=== PATIENT | female | born 1970 | race African-American/Black ===

== ENCOUNTER 2023-06-29 17:03 | Emergency (ER) | payer BC ==
[~2023-06-29] VITALS: Ht 172.7 cm; Wt 86.2 kg
[2023-06-29 17:06] VITALS: BP_SYST 143; PULSE 93; RESP 18; TEMP 98.3; O2SAT 99
[2023-06-29 18:08] LABS: BASOPHILS % (AUTO) 0.6 % (0.0-2.0); EOSINOPHILS # (AUTO) 0.2 K/uL (0.0-0.4); EOSINOPHILS % (AUTO) 5.6 % (0.0-4.0); HEMATOCRIT 38.1 % (36-48); HEMOGLOBIN 12.4 g/dL (12.0-16.0); LYMPHOCYTES # (AUTO) 1.3 K/uL (1.0-5.5); LYMPHOCYTES % (AUTO) 32.5 % (20.5-51.5); MEAN CORPUSCULAR HEMOGLOBIN 28 pg (27-31); MEAN CORPUSCULAR HGB CONC 33 % (32-36); MEAN CORPUSCULAR VOLUME 85 fL (79.0-98.0); MONOCYTES # (AUTO) 0.6 K/uL (0.0-1.0); MONOCYTES % (AUTO) 14.5 % (1.7-9.3); NEUTROPHILS # (AUTO) 1.9 K/uL (1.8-7.7); NEUTROPHILS % (AUTO) 46.8 % (40.0-70.0); PLATELET COUNT (AUTO) 286 K/uL (130-430); RED BLOOD CELL COUNT(AUTO) 4.47 MIL/uL (4.2-6.2); RED CELL DISTRIBUTION WIDTH 14.6 % (9.0-15.0)
[2023-06-29 18:11] LABS: CREATININE 0.91 mg/dL (0.55-1.30); POTASSIUM 3.5 mmol/L (3.5-5.1)
[2023-06-29 18:15] LABS: ALBUMIN 3.5 g/dL (3.4-4.8); TOTAL BILIRUBIN 0.5 mg/dL (0.0-1.0)
[2023-06-29] MEDS ORDERED: CEFU250T85 PO (18:36)
[2023-06-29 19:46] VITALS: BP_SYST 143; PULSE 93; RESP 18; TEMP 98.3; O2SAT 99
== END 2023-06-29 19:46 | disposition home or self-care (01) ==
LOC: SED 17:03
DX: J18.9 Pneumonia, unspecified organism (principal); R06.02 Shortness of breath; Z79.899 Other long term (current) drug therapy
CPT/HCPCS: 36415; 71046-TC; 80053; 85025; 93005; 99285

== ENCOUNTER 2023-07-23 10:55 | Emergency (ER) | payer BC ==
[~2023-07-23] VITALS: Ht 172.7 cm; Wt 83.9 kg
[~2023-07-23 10:55] MED LIST: CEFU250T85 PO
[2023-07-23 11:11] VITALS: BP_SYST 147; PULSE 89; RESP 18; TEMP 97.7; O2SAT 99
[2023-07-23 11:39] LABS: BASOPHILS % (AUTO) 0.8 % (0.0-2.0); EOSINOPHILS # (AUTO) 0.2 K/uL (0.0-0.4); EOSINOPHILS % (AUTO) 5.7 % (0.0-4.0); HEMATOCRIT 38.3 % (36-48); HEMOGLOBIN 12.2 g/dL (12.0-16.0); LYMPHOCYTES # (AUTO) 1.2 K/uL (1.0-5.5); LYMPHOCYTES % (AUTO) 33.5 % (20.5-51.5); MEAN CORPUSCULAR HEMOGLOBIN 27 pg (27-31); MEAN CORPUSCULAR HGB CONC 32 % (32-36); MEAN CORPUSCULAR VOLUME 85 fL (79.0-98.0); MONOCYTES # (AUTO) 0.6 K/uL (0.0-1.0); MONOCYTES % (AUTO) 15.7 % (1.7-9.3); NEUTROPHILS # (AUTO) 1.6 K/uL (1.8-7.7); NEUTROPHILS % (AUTO) 44.3 % (40.0-70.0); PLATELET COUNT (AUTO) 269 K/uL (130-430); RED BLOOD CELL COUNT(AUTO) 4.48 MIL/uL (4.2-6.2); WHITE BLOOD COUNT (AUTO) 3.6 K/uL (4.8-10.8)
[2023-07-23 11:49] LABS: CALCIUM 9.1 mg/dL (8.4-11.0); CREATININE 0.75 mg/dL (0.55-1.30)
[2023-07-23 11:52] LABS: POTASSIUM 2.9 mmol/L (3.5-5.1)
[2023-07-23] MEDS ORDERED: POTASSIUM CHLORIDE 20 MEQ TAB.PRT.SR PO ONE (12:00)
[2023-07-23] MEDS ORDERED: KCL 40 mEq in 100 mL (PREMIX) 100 ML IV ONE (12:00)
[2023-07-23] MEDS ORDERED: POTA-197 PO (12:59)
== END 2023-07-23 13:30 | disposition home or self-care (01) ==
LOC: SED 10:55
DX: R06.02 Shortness of breath (principal); E87.6 Hypokalemia; Z79.899 Other long term (current) drug therapy
CPT/HCPCS: 36415; 71045; 80048; 83880; 84484; 85025; 85379; 93005; 99285

== ENCOUNTER 2024-06-04 10:08 | Emergency (ER) | payer BC ==
[~2024-06-04] VITALS: Ht 172.7 cm; Wt 83.5 kg
[~2024-06-04 10:08] MED LIST changes: +POTA-197 PO
[2024-06-04 10:11] VITALS: BP_SYST 112; PULSE 89; RESP 20; TEMP 98.3; O2SAT 97
[2024-06-04 11:58] LABS: INFLUENZA TYPE A Negative (NEGATIVE); INFLUENZA TYPE B NEGATIVE (NEGATIVE)
[2024-06-04] MEDS ORDERED: ONDA-8 TL (12:10)
[2024-06-04 12:31] VITALS: BP_SYST 142; PULSE 88; RESP 17; TEMP 97.7; O2SAT 98
== END 2024-06-04 12:36 | disposition home or self-care (01) ==
LOC: SED 10:08
DX: J06.9 Acute upper respiratory infection, unspecified (principal); B97.89 Other viral agents as the cause of diseases classified elsewhere; Z20.822 Contact with and (suspected) exposure to COVID-19; Z79.899 Other long term (current) drug therapy; Z79.2 Long term (current) use of antibiotics
CPT/HCPCS: 36415; 71045; 99284